=== PATIENT | female | born 1995 | race American Indian/Alaskan Native ===

== ENCOUNTER → 2021-03-05 15:18 | Outpatient (CLI) | payer OTHER, SELFPAY ==
[2021-03-05 15:32] VITALS: BP 126/85; PULSE 95; RESP 16; TEMP 36.6; O2SAT 98; BMI 21.1
[2021-03-05] MEDS: 0.9% NaCl PICC Flush IV ×2 (15:57→17:29)
[2021-03-05 17:31] VITALS: BP 126/67; PULSE 83; RESP 16; O2SAT 99
== END ==
DX: A49.1 Streptococcal infection, unspecified site (principal); S81.802A Unspecified open wound, left lower leg, initial encounter; Z16.21 Resistance to vancomycin
CPT/HCPCS: 96365; 96367; J0878; J7050; A4216; J3490

== ENCOUNTER → 2021-03-06 14:19 | Outpatient (CLI) | payer OTHER, SELFPAY ==
[2021-03-05 15:32] VITALS: BMI 21.1
[2021-03-06] MEDS: 0.9% NaCl PICC Flush IV (14:28)
[2021-03-06] MEDS: 0.9% NaCl IVPB Med Flush (250 mL) 15 ML IV ×2 (14:29→15:17)
[2021-03-06 14:32] VITALS: BP 135/79; PULSE 110; RESP 16; TEMP 36.2; O2SAT 98
[2021-03-06 15:18] VITALS: BP 138/96; PULSE 89; RESP 16; TEMP 36.3
== END ==
DX: A49.1 Streptococcal infection, unspecified site (principal); S81.802A Unspecified open wound, left lower leg, initial encounter; Z16.21 Resistance to vancomycin
CPT/HCPCS: 96365; 96368; J0878; J7050; A4216; J3490

== ENCOUNTER 2021-03-07 13:20 | Outpatient (CLI) | payer OTHER, SELFPAY ==
[2021-03-05 15:32] VITALS: BMI 21.1
[2021-03-07 13:50] VITALS: BP 124/79; PULSE 87; RESP 16; TEMP 36.7; O2SAT 100
== END 2021-03-07 16:35 | disposition home or self-care (01) ==
LOC: MEDOUTP 13:22 → MS3 13:25
DX: A41.9 Sepsis, unspecified organism (principal); S51.802A Unspecified open wound of left forearm, initial encounter; Z16.21 Resistance to vancomycin
CPT/HCPCS: 96365; 96367; J0878; J7040; J3490

== ENCOUNTER 2021-03-08 12:20 | Outpatient (CLI) | payer OTHER, SELFPAY ==
[2021-03-05 15:32] VITALS: BMI 21.1
[2021-03-08 13:43] VITALS: BP 130/51; PULSE 79; RESP 18; TEMP 36.7; O2SAT 100
[2021-03-08] MEDS: 0.9% Saline Lock 10 ML Syringe IV (15:27)
== END 2021-03-08 15:31 | disposition home or self-care (01) ==
LOC: MEDOUTP 12:21 → MS3 12:23
DX: A41.9 Sepsis, unspecified organism (principal); S51.802A Unspecified open wound of left forearm, initial encounter; Z16.21 Resistance to vancomycin
CPT/HCPCS: 96365; 96367; J0878; A4216; J3490

== ENCOUNTER → 2021-03-09 15:43 | Outpatient (CLI) | payer OTHER, SELFPAY ==
[2021-03-05 15:32] VITALS: BMI 21.1
[2021-03-09] MEDS: 0.9% NaCl IVPB Med Flush (250 mL) 15 ML IV ×2 (15:50→15:51)
[2021-03-09] MEDS: 0.9% NaCl PICC Flush IV ×2 (15:50→16:52)
[2021-03-09 16:00] VITALS: BP 123/69; PULSE 87; RESP 16; TEMP 36.6; O2SAT 99
[2021-03-09 16:16] LABS: Absolute Lymphocyte Count 1.57 X10^3/uL (0.83-4.51); Absolute Neutrophil Count 4.1 X10^3/uL (2.0-7.7); Basophil# 0.02 X10^3/uL; Basophil% 0.3 % (0-1); Eosinophil# 0.23 X10^3/uL; Eosinophils% 3.7 % (0-5); Hematocrit 26.1 % (37-47); Hemoglobin 7.7 g/dL (12.0-15.0); Lymphocyte # 1.57 X10^3/ul (0.83-4.51); Mean Corp Hgb Conc 29.5 g/dL (32-36); Mean Corpuscular Hgb 25.2 pg (27.0-32.0); Mean Corpuscular Volume 85.3 fL (81-99); Mean Platelet Vol. 9.9 fl (6.2-12.0); Monocyte# 0.39 X10^3/uL; Monocyte% 6.2 % (0-10); NRBC Flagged by Analyzer 0 % (0-5); Neutrophil # 4.06 X10^3/uL (2.7-7.7); Neutrophil % 64.6 % (47-70); Platelet Count 469 K/mm3 (150-450); RBC Distribution Width CV 13.6 % (11.6-14.6); RBC Distribution Width SD 42.6 fl (35.1-43.9); Red Blood Count 3.06 M/mm3 (4.2-5.4); White Blood Count 6.3 K/mm3 (4.4-11.0)
[2021-03-09 16:31] LABS: ALB/GLOB Ratio 0.8 RATIO (0.9-2.4); AST(SGOT) 22 U/L (15-37); Alanine Aminotransfer ALT/SGPT 26 U/L (13-56); Alkaline Phosphatase 91 U/L (45-117); Anion Gap 3 (5-15); BUN 11 mg/dL (7-18); CPK Total, Creatine Kinase 45 U/L (26-192); Calcium,Total 8.9 mg/dL (8.5-10.1); Chloride 110 mmol/L (98-107); Creatinine, Serum 0.42 mg/dL (0.55-1.02); EST Glomerular Filtration Rate 196 mL/min (>60); Est Glom Filt Rate - Afr Amer 237 mL/min (>60); Globulin 3.6 g/dL (2.2-4.2); Glucose 94 mg/dL (74-106); Potassium 3.4 mmol/L (3.5-5.1); Protein, Total 6.6 g/dL (6.4-8.2); Sodium Level 143 mmol/L (136-145)
[2021-03-09 16:54] VITALS: BP 131/69; PULSE 82; RESP 16; TEMP 36.5
== END ==
DX: A41.9 Sepsis, unspecified organism (principal); S51.802A Unspecified open wound of left forearm, initial encounter; Z16.21 Resistance to vancomycin
CPT/HCPCS: 96365; 96368; 36592; 80053; 82550; 85025; J0878; J7050; A4216; J3490

== ENCOUNTER → 2021-03-10 12:29 | Outpatient (CLI) | payer OTHER, SELFPAY ==
[2021-03-05 15:32] VITALS: BMI 21.1
[2021-03-10] MEDS: 0.9% NaCl IVPB Med Flush (250 mL) 15 ML IV ×2 (12:47→12:48)
[2021-03-10] MEDS: 0.9% NaCl PICC Flush IV (12:48)
[2021-03-10 12:50] VITALS: BP 133/87; PULSE 92; RESP 16; TEMP 36.2; O2SAT 98
[2021-03-10 13:45] VITALS: BP 119/82
== END ==
DX: A41.9 Sepsis, unspecified organism (principal); S51.802A Unspecified open wound of left forearm, initial encounter; Z16.21 Resistance to vancomycin
CPT/HCPCS: 96365; 96368; J0878; J7050; A4216; J3490

== ENCOUNTER → 2021-03-11 13:06 | Outpatient (CLI) | payer OTHER, SELFPAY ==
[2021-03-05 15:32] VITALS: BMI 21.1
[2021-03-11 13:10] VITALS: BP 140/86; PULSE 75; RESP 16; TEMP 36.5; O2SAT 100; BMI 21.1
[2021-03-11] MEDS: 0.9% NaCl IVPB Med Flush (250 mL) 15 ML IV ×2 (13:27→13:30)
[2021-03-11] MEDS: 0.9% NaCl PICC Flush IV ×2 (13:27→14:27)
[2021-03-11 14:30] VITALS: BP 136/72; PULSE 75
== END ==
PROVIDERS: Referring Provider Internal Medicine Infectious Disease; Visit Provider Internal Medicine Infectious Disease
DX: S51.802A Unspecified open wound of left forearm, initial encounter (principal); B96.89 Other specified bacterial agents as the cause of diseases classified elsewhere; Z16.21 Resistance to vancomycin
CPT/HCPCS: 96365; 96368; J0878; J7050; A4216; J3490

== ENCOUNTER → 2021-03-12 13:18 | Outpatient (CLI) | payer OTHER, SELFPAY ==
[2021-03-05 15:32] VITALS: BMI 21.1
[2021-03-12] MEDS: 0.9% NaCl IVPB Med Flush (250 mL) 15 ML IV ×2 (13:24→13:25)
[2021-03-12] MEDS: 0.9% NaCl PICC Flush IV ×2 (13:26→14:35)
[2021-03-12 13:35] VITALS: BP 127/56; PULSE 67; RESP 16; TEMP 36.4; O2SAT 99
== END ==
PROVIDERS: Referring Provider Internal Medicine Infectious Disease; Visit Provider Internal Medicine Infectious Disease
DX: S51.802A Unspecified open wound of left forearm, initial encounter (principal); X58.XXXA Exposure to other specified factors, initial encounter; A49.1 Streptococcal infection, unspecified site; Z16.21 Resistance to vancomycin
CPT/HCPCS: 96365; 96368; J0878; J7050; A4216; J3490

== ENCOUNTER → 2021-03-13 11:03 | Outpatient (CLI) | payer OTHER, SELFPAY ==
[2021-03-05 15:32] VITALS: BMI 21.1
[2021-03-13 11:17] VITALS: BP 141/97; PULSE 83; RESP 16; TEMP 36; O2SAT 99
[2021-03-13] MEDS: 0.9% NaCl IVPB Med Flush (250 mL) 15 ML IV ×2 (11:26→11:28)
[2021-03-13] MEDS: 0.9% NaCl PICC Flush IV ×2 (11:26→12:27)
== END ==
PROVIDERS: Referring Provider Internal Medicine Infectious Disease; Visit Provider Internal Medicine Infectious Disease
DX: S51.802A Unspecified open wound of left forearm, initial encounter (principal); A49.1 Streptococcal infection, unspecified site; Z16.21 Resistance to vancomycin
CPT/HCPCS: 96365; J0878; J7050; A4216; J3490

== ENCOUNTER → 2021-03-14 10:06 | Outpatient (CLI) | payer OTHER, SELFPAY ==
[2021-03-05 15:32] VITALS: BMI 21.1
[2021-03-14 11:15] VITALS: BP 135/90; PULSE 80; RESP 16; TEMP 36.4; O2SAT 99
== END ==
PROVIDERS: Referring Provider Internal Medicine Infectious Disease; Visit Provider Internal Medicine Infectious Disease
DX: S51.802A Unspecified open wound of left forearm, initial encounter (principal); B96.89 Other specified bacterial agents as the cause of diseases classified elsewhere; Z16.21 Resistance to vancomycin
CPT/HCPCS: 96365; 96368; J0878; J7050; A4216; J3490

== ENCOUNTER → 2021-03-15 10:39 | Outpatient (CLI) | payer OTHER, SELFPAY ==
[2021-03-05 15:32] VITALS: BMI 21.1
[2021-03-15 11:23] VITALS: BP 143/64; PULSE 69; RESP 16; TEMP 36.6; O2SAT 100
== END ==
PROVIDERS: Referring Provider Internal Medicine Infectious Disease; Visit Provider Internal Medicine Infectious Disease
DX: S51.802A Unspecified open wound of left forearm, initial encounter (principal); X58.XXXA Exposure to other specified factors, initial encounter; A49.1 Streptococcal infection, unspecified site; Z16.21 Resistance to vancomycin
CPT/HCPCS: 96365; 96368; J0878; J7050; A4216; J3490

== ENCOUNTER → 2021-03-16 11:54 | Outpatient (CLI) | payer OTHER, SELFPAY ==
[2021-03-05 15:32] VITALS: BMI 21.1
[2021-03-16] MEDS: 0.9% NaCl PICC Flush IV ×2 (12:03→13:23)
[2021-03-16] MEDS: 0.9% NaCl IVPB Med Flush (250 mL) 15 ML IV ×2 (12:22→12:27)
[2021-03-16 12:35] VITALS: BP 146/80; PULSE 67; RESP 16; TEMP 36.5; O2SAT 99
== END ==
PROVIDERS: Referring Provider Internal Medicine Infectious Disease; Visit Provider Internal Medicine Infectious Disease
DX: A49.1 Streptococcal infection, unspecified site (principal); S81.802A Unspecified open wound, left lower leg, initial encounter; Z16.21 Resistance to vancomycin
CPT/HCPCS: 96365; 96368; 36592; J0878; J7050; A4216; J3490

== ENCOUNTER → 2021-03-17 11:59 | Outpatient (CLI) | payer OTHER, SELFPAY ==
[2021-03-05 15:32] VITALS: BMI 21.1
[2021-03-17 12:07] VITALS: BP 153/96; PULSE 71; RESP 16; TEMP 36.3; O2SAT 100
[2021-03-17] MEDS: 0.9% NaCl PICC Flush IV (12:13)
[2021-03-17] MEDS: 0.9% NaCl IVPB Med Flush (250 mL) 15 ML IV ×2 (12:13→12:18)
[2021-03-17 13:19] VITALS: BP 153/85; PULSE 74; RESP 16; TEMP 36.5
== END ==
PROVIDERS: Referring Provider Internal Medicine Infectious Disease; Visit Provider Internal Medicine Infectious Disease
DX: S51.802A Unspecified open wound of left forearm, initial encounter (principal); A49.1 Streptococcal infection, unspecified site; Z16.21 Resistance to vancomycin; X58.XXXA Exposure to other specified factors, initial encounter; Y93.9 Activity, unspecified; Y92.9 Unspecified place or not applicable; Y99.9 Unspecified external cause status
CPT/HCPCS: 96365; 96367; J0878; J7050; A4216; J3490

== ENCOUNTER → 2021-03-18 12:57 | Outpatient (CLI) | payer OTHER, SELFPAY ==
[2021-03-18] MEDS: 0.9% NaCl IVPB Med Flush (250 mL) 15 ML IV (13:19)
[2021-03-18] MEDS: 0.9% NaCl PICC Flush IV ×2 (13:20→14:49)
[2021-03-18 13:35] VITALS: BP 122/68; PULSE 75; RESP 16; TEMP 37.3; O2SAT 98
[2021-03-18 14:54] VITALS: BP 111/80; PULSE 74; RESP 16; TEMP 37.3; O2SAT 100
== END ==
PROVIDERS: Referring Provider Internal Medicine Infectious Disease; Visit Provider Internal Medicine Infectious Disease
DX: A41.9 Sepsis, unspecified organism (principal); S51.802A Unspecified open wound of left forearm, initial encounter; Z16.21 Resistance to vancomycin
CPT/HCPCS: 96365; 96366; 96368; J0878; J7050; A4216; J3490

== ENCOUNTER → 2021-03-19 12:26 | Outpatient (CLI) | payer OTHER, SELFPAY ==
[2021-03-19 12:54] VITALS: BP 96/44; PULSE 77; RESP 16; TEMP 36.2; O2SAT 100; BMI 21.1
[2021-03-19] MEDS: 0.9% NaCl PICC Flush IV ×2 (12:58→14:15)
[2021-03-19] MEDS: 0.9% NaCl IVPB Med Flush (250 mL) 15 ML IV ×2 (12:59→13:15)
[2021-03-19 14:20] VITALS: BP 115/57; PULSE 73; RESP 16; TEMP 36.4; O2SAT 100
== END ==
PROVIDERS: Referring Provider Internal Medicine Infectious Disease; Visit Provider Internal Medicine Infectious Disease
DX: A41.9 Sepsis, unspecified organism (principal); S51.802A Unspecified open wound of left forearm, initial encounter; Z16.21 Resistance to vancomycin
CPT/HCPCS: 96365; 96368; J0878; J7050; A4216; J3490

== ENCOUNTER → 2021-03-20 11:39 | Outpatient (CLI) | payer OTHER, SELFPAY ==
[2021-03-20] MEDS: 0.9% NaCl IVPB Med Flush (250 mL) 15 ML IV ×2 (11:43→11:44)
[2021-03-20] MEDS: 0.9% NaCl PICC Flush IV (11:44)
[2021-03-20 11:47] VITALS: BP 141/74; PULSE 78; RESP 16; TEMP 36.9; O2SAT 100
[2021-03-20 12:41] VITALS: BP 149/80; PULSE 77; RESP 16; TEMP 36.7
== END ==
PROVIDERS: Referring Provider Internal Medicine Infectious Disease; Visit Provider Internal Medicine Infectious Disease
DX: A41.9 Sepsis, unspecified organism (principal); S51.802A Unspecified open wound of left forearm, initial encounter; Z16.21 Resistance to vancomycin
CPT/HCPCS: 96365; 96368; J0878; J7050; A4216; J3490

== ENCOUNTER → 2021-03-21 09:50 | Outpatient (CLI) | payer OTHER, SELFPAY ==
[2021-03-21] MEDS: 0.9% NaCl PICC Flush IV (11:43)
[2021-03-21] MEDS: 0.9% NaCl IVPB Med Flush (250 mL) 15 ML IV ×2 (11:43→11:47)
[2021-03-21 11:48] VITALS: BP 143/87; PULSE 92; RESP 16; TEMP 36.2; O2SAT 98
[2021-03-21 12:44] VITALS: BP 156/92; PULSE 86; RESP 16; TEMP 36.6
== END ==
PROVIDERS: Referring Provider Internal Medicine Infectious Disease; Visit Provider Internal Medicine Infectious Disease
DX: A41.9 Sepsis, unspecified organism (principal); S51.802A Unspecified open wound of left forearm, initial encounter; Z16.21 Resistance to vancomycin
CPT/HCPCS: 96365; 96368; J0878; J7050; A4216; J3490

== ENCOUNTER → 2021-03-22 10:12 | Outpatient (CLI) | payer OTHER, SELFPAY ==
[2021-03-22 12:37] VITALS: BP 154/91; PULSE 75; RESP 16; TEMP 36.8; O2SAT 100
== END ==
PROVIDERS: Referring Provider Internal Medicine Infectious Disease; Visit Provider Internal Medicine Infectious Disease
DX: A41.9 Sepsis, unspecified organism (principal); S51.802A Unspecified open wound of left forearm, initial encounter; Z16.21 Resistance to vancomycin
CPT/HCPCS: 96365; 96368; J0878; J7050; A4216; J3490

== ENCOUNTER → 2021-03-23 12:01 | Outpatient (CLI) | payer OTHER, SELFPAY ==
[2021-03-23] MEDS: 0.9% NaCl IVPB Med Flush (250 mL) 15 ML IV ×2 (12:12→13:40)
[2021-03-23] MEDS: 0.9% NaCl PICC Flush IV (12:27)
[2021-03-23 12:30] VITALS: BP 121/73; PULSE 86; RESP 16; TEMP 36.9; O2SAT 99
[2021-03-23 12:58] LABS: Absolute Neutrophil Count 2.7 X10^3/uL (2.0-7.7); Basophil# 0.03 X10^3/uL; Basophil% 0.7 % (0-1); Eosinophil# 0.15 X10^3/uL; Eosinophils% 3.3 % (0-5); Hematocrit 27.6 % (37-47); Hemoglobin 8.3 g/dL (12.0-15.0); Lymphocyte % 28.8 % (19-41); Mean Corp Hgb Conc 30.1 g/dL (32-36); Mean Corpuscular Hgb 24.3 pg (27.0-32.0); Mean Corpuscular Volume 80.7 fL (81-99); Mean Platelet Vol. 10.4 fl (6.2-12.0); Monocyte# 0.35 X10^3/uL; Monocyte% 7.8 % (0-10); NRBC Flagged by Analyzer 0 % (0-5); Neutrophil # 2.67 X10^3/uL (2.7-7.7); Neutrophil % 59.2 % (47-70); Platelet Count 316 K/mm3 (150-450); RBC Distribution Width CV 14.5 % (11.6-14.6); RBC Distribution Width SD 42.5 fl (35.1-43.9); Red Blood Count 3.42 M/mm3 (4.2-5.4); White Blood Count 4.5 K/mm3 (4.4-11.0)
[2021-03-23 13:12] LABS: ALB/GLOB Ratio 0.9 RATIO (0.9-2.4); AST(SGOT) 15 U/L (15-37); Alanine Aminotransfer ALT/SGPT 21 U/L (13-56); Albumin, Serum 3.3 g/dL (3.2-5.0); Alkaline Phosphatase 87 U/L (45-117); Anion Gap 7 (5-15); BUN 11 mg/dL (7-18); BUN/Creat Ratio 19.9 RATIO (10-20); CPK Total, Creatine Kinase 220 U/L (26-192); Calcium,Total 8.5 mg/dL (8.5-10.1); Chloride 111 mmol/L (98-107); Creatinine, Serum 0.55 mg/dL (0.55-1.02); EST Glomerular Filtration Rate 144 mL/min (>60); Est Glom Filt Rate - Afr Amer 174 mL/min (>60); Globulin 3.5 g/dL (2.2-4.2); Glucose 100 mg/dL (74-106); Potassium 3.1 mmol/L (3.5-5.1); Protein, Total 6.8 g/dL (6.4-8.2); Sodium Level 142 mmol/L (136-145)
[2021-03-23 13:43] VITALS: BP 133/95; PULSE 77; RESP 16; TEMP 36.6; O2SAT 100
== END ==
PROVIDERS: Referring Provider Internal Medicine Infectious Disease; Visit Provider Internal Medicine Infectious Disease
DX: A41.9 Sepsis, unspecified organism (principal); S51.802A Unspecified open wound of left forearm, initial encounter; Z16.21 Resistance to vancomycin
CPT/HCPCS: 96365 ×2; 96368; 36592; 80053; 82550; 85025; J0878; J7050; A4216; J3490

== ENCOUNTER → 2021-03-24 11:58 | Outpatient (CLI) | payer OTHER, SELFPAY ==
[2021-03-24] MEDS: 0.9% NaCl PICC Flush IV ×2 (12:12→13:07)
[2021-03-24] MEDS: 0.9% NaCl IVPB Med Flush (250 mL) 15 ML IV ×2 (12:12→12:14)
[2021-03-24 12:14] VITALS: BP 142/71; PULSE 72; RESP 16; TEMP 36.6; O2SAT 99
== END ==
PROVIDERS: Referring Provider Internal Medicine Infectious Disease; Visit Provider Internal Medicine Infectious Disease
DX: A41.9 Sepsis, unspecified organism (principal); S51.802A Unspecified open wound of left forearm, initial encounter; Z16.21 Resistance to vancomycin
CPT/HCPCS: 96365; 96368; J0878; J7050; A4216; J3490

== ENCOUNTER → 2021-03-25 12:15 | Outpatient (CLI) | payer OTHER, SELFPAY ==
[2021-03-25] MEDS: 0.9% NaCl IVPB Med Flush (250 mL) 15 ML IV (12:34)
[2021-03-25] MEDS: 0.9% NaCl PICC Flush IV ×2 (12:34→14:01)
[2021-03-25 12:40] VITALS: BP 121/78; PULSE 83; RESP 16; TEMP 36.1; O2SAT 98
== END ==
PROVIDERS: Referring Provider Internal Medicine Infectious Disease; Visit Provider Internal Medicine Infectious Disease
DX: A41.9 Sepsis, unspecified organism (principal); S51.802A Unspecified open wound of left forearm, initial encounter; Z16.21 Resistance to vancomycin
CPT/HCPCS: 96365; 96368; J0878; J7050; A4216; J3490

== ENCOUNTER → 2021-03-26 12:10 | Outpatient (CLI) | payer OTHER, SELFPAY ==
[2021-03-26] MEDS: 0.9% NaCl PICC Flush IV ×2 (12:20→13:51)
[2021-03-26] MEDS: 0.9% NaCl IVPB Med Flush (250 mL) 15 ML IV (12:21)
[2021-03-26 12:30] VITALS: BP 125/87; PULSE 78; RESP 16; TEMP 36.3; O2SAT 100
[2021-03-26 13:54] VITALS: BP 121/66; PULSE 65; RESP 16
== END ==
PROVIDERS: Referring Provider Internal Medicine Infectious Disease; Visit Provider Internal Medicine Infectious Disease
DX: A41.9 Sepsis, unspecified organism (principal); S51.802A Unspecified open wound of left forearm, initial encounter; Z16.21 Resistance to vancomycin
CPT/HCPCS: 96365; 96368; J0878; J7050; A4216; J3490

== ENCOUNTER → 2021-03-27 12:11 | Outpatient (CLI) | payer OTHER, SELFPAY ==
[2021-03-27 12:30] VITALS: BP 140/87; PULSE 80; RESP 16; TEMP 36.9; O2SAT 100
[2021-03-27] MEDS: 0.9% NaCl PICC Flush IV ×2 (12:36→13:32)
[2021-03-27] MEDS: 0.9% NaCl IVPB Med Flush (250 mL) 15 ML IV ×2 (12:36→12:38)
[2021-03-27 13:30] VITALS: BP 131/87; PULSE 69; RESP 16; TEMP 36.8; O2SAT 99
== END ==
PROVIDERS: Referring Provider Internal Medicine Infectious Disease; Visit Provider Internal Medicine Infectious Disease
DX: A49.1 Streptococcal infection, unspecified site (principal); S51.802A Unspecified open wound of left forearm, initial encounter; Z16.21 Resistance to vancomycin
CPT/HCPCS: 96365; 96368; J0878; J7050; A4216; J3490

== ENCOUNTER → 2021-03-28 10:01 | Outpatient (CLI) | payer OTHER, SELFPAY ==
[2021-03-28 12:03] VITALS: BP 109/70; PULSE 65; RESP 16; TEMP 36.1; O2SAT 99; BMI 21.1
[2021-03-28 13:47] VITALS: BP 106/64; PULSE 70; RESP 16; TEMP 36.2; O2SAT 99
== END ==
PROVIDERS: Referring Provider Internal Medicine Infectious Disease; Visit Provider Internal Medicine Infectious Disease
DX: A49.1 Streptococcal infection, unspecified site (principal); S51.802A Unspecified open wound of left forearm, initial encounter; Z16.21 Resistance to vancomycin
CPT/HCPCS: 96365; 96368; J0878; J7050; A4216; J3490